=== PATIENT | male | born 1970 | race Caucasian/White ===

== ENCOUNTER 2019-09-12 12:47 | Emergency (ER) | payer BC, OTHER ==
[2019-09-12] MEDS ORDERED: Ondansetron ODT 4 MG TAB ONE (14:37)
--- NOTE | 2019-09-12 14:57 | RAD ---
THORACIC SPINE THREE VIEWS: Indication: Back pain. Comparison: None. FINDINGS: There is diffuse osteopenia. There is moderate multilevel thoracic spondylosis. Surgical clips are pr esent in the right upper quadrant. IMPRESSION: Moderate spondylosis thoracic spine. POS: [facility]
[2019-09-12 15:16] LABS: #Basophils 0.1 thou/uL (0.0-0.2); #Eosinphils 0.1 thou/uL (0.0-0.7); #Monocytes 0.4 thou/uL (0.11-0.59); %Basophils 0.8 % (0.0-1.0); %Eosinophils 0.9 % (0.0-10.0); %Lymphocytes 13.6 % (21.0-51.0); %Monocytes 5.3 % (0.0-10.0); %Neutrophils 79.4 % (42.0-75.0); Hemoglobin 15.8 g/dL (14.0-18.0); Mean Corpuscular HGB CONC 34.2 g/dL (32.0-36.0); Mean Corpuscular Hemoglobin 32.2 pg (27.0-31.0); Mean Corpuscular Volume 94.1 fL (78.0-98.0); Platelet Count 250 thou/uL (130-400); RBC Distribution Width 11.4 % (11.5-14.5); Red Blood Cell (RBC) Count 4.92 mill/uL (4.70-6.10); White Blood Cell (WBC) Count 7.6 thou/uL (4.8-10.8)
[2019-09-12 15:34] LABS: Bacteria/HPF None Seen HPF (None Seen); Bilirubin Negative (Negative); Blood, Urine 3+ (Negative); Calcium Oxalate Crystals 1+ HPF (None Seen); Clarity Turbid (Clear); Glucose, Urine (Dipstick) Normal (Negative); Leukocyte Negative Leu/uL (Negative); Nitrite Negative (Negative); Protein, Urine (Dipstick) 100 mg/dL (Neg-Trace); RBC/HPF Greater than 50 HPF (0-3); Squamous Epithelial 0-3 HPF (0-3)
[2019-09-12 15:40] LABS: ALT (SGPT) 58 U/L (8-55); AST (SGOT) 43 U/L (5-34); Albumin 4.7 g/dL (3.5-5.0); Alkaline Phosphatase 98 U/L (40-110); Anion Gap 14 mmol/L (10-20); BUN (Urea Nitrogen) 11 mg/dL (8.4-25.7); Bilirubin, Total 0.4 mg/dL (0.2-1.2); Calc. Creatinine Clearance 0 mL/min (70-130); Calcium 9.6 mg/dL (7.8-10.44); Carbon Dioxide 24 mmol/L (22-29); Chloride 107 mmol/L (98-107); Estimated GFR-MDRD 64; Globulin 3.3 g/dL (2.4-3.5); Glucose 122 mg/dL (70-105); Potassium 3.9 mmol/L (3.5-5.1); Sodium 141 mmol/L (136-145)
[2019-09-12] MEDS ORDERED: Ketorolac Tromethamine 30 MG/ML VIAL ONE (16:04)
--- NOTE | 2019-09-12 20:14 | CT ---
CT STONE PROTOCOL: History: Right flank pain. Absence of oral and IV contrast reduces the sensitivity of the exam for evaluation of solid organs an d bowel. Comparison: None FINDINGS: The lung bases are clear. No free air or free fluid is seen in the abdomen or pelvis. There are post op changes of cholecystectomy. The solid bowel is not abnormally dilated. Normal appearing appendix i s present. There is a 3 mm calculus in the inferior pole of the left kidney. No calculi are seen in the right ki dney, left ureter or the urinary bladder. The prostate is mildly enlarged. There is a 3 mm calculus i n the right proximal ureter at L3-4 level with mild right sided hydroureteronephrosis. No left sided hydroureteronephrosis is seen. There are small fat containing hiatal hernia, right larger than left. There is chronic diverticulitis . There are degenerative changes in the spine. IMPRESSION: 1. 3 mm right ureteral calculus at L3-4 level. 2. Nonobstructing left renal calculus. 3. Colonic diverticulosis. POS: OFF
== END 2019-09-12 18:08 | disposition home or self-care (01) ==
LOC: ERS 12:47
DX: N13.2 Hydronephrosis with renal and ureteral calculous obstruction (principal); G43.909 Migraine, unspecified, not intractable, without status migrainosus; R11.2 Nausea with vomiting, unspecified; Z87.891 Personal history of nicotine dependence
CPT/HCPCS: 36415; 72072; 74176; 80053; 81003; 81015; 85025; 94760; 96374; J1885; Q0162